=== PATIENT | female | born 1970 | race Hispanic/Latino ===

== ENCOUNTER 2020-09-25 23:43 | Emergency (ER) | payer MEDICAID ==
[~2020-09-25] VITALS: Ht 160 cm; Wt 77.1 kg
[2020-09-26 00:30] VITALS: BP 126/84
[2020-09-26 00:46] LABS: BILIRUBIN,URINE Negative (NEGATIVE); COLOR,URINE Yellow (YELLOW); GLUCOSE, URINE (UA) Negative (NEGATIVE); KETONES,URINE Trace mg/dL (NEGATIVE); LEUKOCYTE ESTERASE ,URINE Small (NEGATIVE); NITRATE,URINE Positive (NEGATIVE); OCCULT BLOOD,URINE Negative (NEGATIVE); PROTEIN,URINE Negative (NEGATIVE)
[2020-09-26 01:04] LABS: APPEARANCE,URINE SLIGHTLY CLOUDY (CLEAR)
[2020-09-26 01:18] LABS: BACTERIA,URINE Many /HPF (None Seen); RBC,URINE 0-1 /HPF (0-1)
[2020-09-26] MEDS ORDERED: ORPHENADRINE CITRATE 30 MG/ML ML IV ONE (01:30)
[2020-09-26] MEDS ORDERED: KETOROLAC 30MG VIAL (30MG/ML) IV ONE (01:30)
[2020-09-26] MEDS ORDERED: ORPHENADRINE CITRATE 30 MG/ML ML ONE (01:53)
[2020-09-26] MEDS ORDERED: KETOROLAC 30MG VIAL (30MG/ML) ONE (01:53)
[2020-09-26 01:58] LABS: BASOPHILS % (AUTO) 0.4 % (0.0-5.0); EOSINOPHILS % (AUTO) 2.7 % (0.0-8.0); HEMATOCRIT 36.6 % (36-48); LYMPHOCYTES % (AUTO) 27.3 % (21.0-51.0); MEAN CORPUSCULAR HEMOGLOBIN 29.5 pg (27.0-33.0); MEAN CORPUSCULAR HGB CONC 33.1 g/dL (32.0-36.0); MEAN CORPUSCULAR VOLUME 89.3 fL (79-99); MONOCYTES % (AUTO) 6.5 % (3.0-13.0); NEUTROPHILS % (AUTO) 62.6 % (40.0-77.0); PLATELET COUNT (AUTO) 274 K/uL (130-400); WHITE BLOOD COUNT (AUTO) 11.8 K/uL (4.8-10.8)
[2020-09-26 02:09] LABS: CREATININE 1.1 mg/dL (0.5-1.5); POTASSIUM 4.2 mmol/L (3.5-5.1)
[2020-09-26 02:12] LABS: ALBUMIN 3.4 g/dL (3.5-5.0); BILIRUBIN,TOTAL 0.2 mg/dL (0.2-1.0)
[2020-09-26 04:33] VITALS: BP 130/78
[2020-09-26] MEDS ORDERED: CEFTRIAXONE 1G VIAL IVP ONE (05:00)
[2020-09-26] MEDS ORDERED: SULF1TAB41 PO (05:12)
== END 2020-09-26 05:29 | disposition home or self-care (01) ==
LOC: EDH 23:43
DX: N30.00 Acute cystitis without hematuria (principal); N20.0 Calculus of kidney; F32.9 Major depressive disorder, single episode, unspecified; F41.9 Anxiety disorder, unspecified; Z79.1 Long term (current) use of non-steroidal anti-inflammatories (NSAID); Z90.710 Acquired absence of both cervix and uterus
CPT/HCPCS: 36415; 76770; 80053; 81001; 83690; 85025; 87077; 87088; 87186; 96374; 96375; 99284; J0696; J1885; J2360